=== PATIENT | male | born 1985 | race Caucasian/White ===

== ENCOUNTER → 2021-07-07 14:48 | Outpatient (BNVA) | payer OTHER, SELFPAY | PROVIDERS: Family Provider Family Medicine; PCP Family Medicine; Visit Provider Nurse Practitioner Family | DX: R05.9 Cough, unspecified (principal); Z20.822 Contact with and (suspected) exposure to COVID-19 | CPT/HCPCS: 87635 ==

== ENCOUNTER → 2022-08-21 16:57 | Outpatient (BNVA) | payer MEDICAID, SELFPAY | PROVIDERS: Family Provider Family Medicine; PCP Family Medicine; Visit Provider Nurse Practitioner Family | DX: R10.11 Right upper quadrant pain (principal); I10 Essential (primary) hypertension; N63.0 Unspecified lump in unspecified breast; R19.7 Diarrhea, unspecified | CPT/HCPCS: 80053; 80061; 82150; 83690; 84443; 85025; 86140 ==

== ENCOUNTER 2022-09-12 08:07 | Outpatient (CLI) | payer MEDICAID, SELFPAY ==
--- NOTE | 2022-09-12 | US_ITS ---
WS: [id number] RIGHT UPPER QUADRANT ULTRASOUND HISTORY: RUQ PAIN COMPARISON: None available. Liver: 17.8 cm in length. Mildly enlarged liver. Very mild coarse echotexture. There are several hypo echoic areas within the liver which need further evaluation. In the central RIGHT lobe near the cauda te is a hypoechoic mass measuring 2.1 x 2.7 x 2.1 cm. There is an additional hypoechoic area near the LEFT lobe which may be artifactual, very ill-defined. Nevertheless additional evaluation of the live r will be necessary. Portal Vein: Normal hepatopetal flow with monophasic waveform. Gallbladder: Normally distended gallbladder with no stones or wall thickening. CBD: Not visualized. Pancreas: Not visualized. Right kidney: 11.5 cm in length. Normal size and echogenicity. No hydronephrosis or mass. Aorta and IVC: Unremarkable abdominal aorta and IVC. No ascites. US/US abdomen limited [id number] IMPRESSION: 1. Mild hepatomegaly with hepatic steatosis. 2. There are additional hypoechoic areas within the liver which are masslike a nd need further imaging evaluation. Differential includes hepatic neoplasm but also areas of focal fatty sparing. Recommend follow-up CT abdomen and pelvis wi th IV and oral contrast. 3. Limited visualization and evaluation of the common bile duct and pancreas. This will be further evaluated on the follow-up CT.
--- NOTE | 2022-09-12 08:16 | MM_ITS ---
WS: [id number] DIAGNOSTIC BILATERAL DIGITAL BREAST TOMOSYNTHESIS MAMMOGRAPHY WITH CAD Bilateral breast ultrasound, limited. HISTORY: N63.0 - Unspecified lump in unspecified breast, male patient. COMPARISON: None available. TECHNIQUE: Bilateral craniocaudad, mediolateral oblique, and mediolateral views are submitted with to mosjacky and CATHY. Spot compression bilateral CC views. Computer aided detection utilized. Breast composition: The breasts are almost entirely fatty. Markers are placed over each breast with t he patient describes palpable areas. No underlying masses are identified. No skin thickening. Bilateral breast ultrasound, limited. Bilateral breast ultrasound is performed. Patient directed imaging to the areas of concern and palpab le abnormalities. No masses or distortion or shadowing is identified within either breast. MM/[place] [id number] IMPRESSION: BI-RADS: 1-Negative FOLLOW UP: See Report No additional imaging necessary.
== END 2022-09-12 08:08 | disposition home or self-care (01) ==
PROVIDERS: PCP Nurse Practitioner Family; Visit Provider Nurse Practitioner Family
DX: N63.0 Unspecified lump in unspecified breast (principal); R10.11 Right upper quadrant pain; K76.0 Fatty (change of) liver, not elsewhere classified
CPT/HCPCS: 76642; 76705; 77062; G0279

== ENCOUNTER 2022-09-29 12:15 | Outpatient (CLI) | payer MEDICAID, SELFPAY ==
[2022-09-29] MEDS: iohexol 350 mg/mL 500 mL Btl (per mL) IV (12:29)
--- NOTE | 2022-09-29 13:00 | CT_ITS ---
WS: [id number] EXAMINATION: CT abdomen pelvis w con* [id number] ORDER DATE: 09/29/2022 12:28 PM HISTORY: R93.2 - Abnormal findings on diagnostic imaging of liver ... TOTAL EXAM DLP: 838.[address] scans at [facility] use at least one of these dose optimization techniques: automated e xposure control; mA and/or kV adjustment per patient size (includes targeted exams where dose is matc hed to clinical indication); or iterative reconstruction. TECHNIQUE: Transaxial imaging through the abdomen and pelvis was performed with 2-D reformats followi ng the intravenous administration of Omnipaque 350 100 ml IV FINDINGS: There are no acute changes in the visualized lung bases. There is no sign of pneumoperitoneum. The liver was unremarkable. The gallbladder, spleen and pancreas were unremarkable. There is a normal appearance of both adrenal glands and both kidneys. The small bowel pattern is not significantly dilated and there are no significant air-fluid levels. There is a normal-appearing appendix. There is moderate fecal loading of the colon. There is no ascites or increased cul-de-sac fluid. The urinary bladder as imaged is unremarkable. CT/CT abdomen pelvis w con* [id number] IMPRESSION: No acute abdominal findings
[2022-09-29] MEDS: iohexol 350 mg/mL 500 mL Btl (per mL) PO (13:02)
== END 2022-09-29 12:16 | disposition home or self-care (01) ==
PROVIDERS: PCP Nurse Practitioner Family; Visit Provider Nurse Practitioner Family
DX: R93.2 Abnormal findings on diagnostic imaging of liver and biliary tract (principal)
CPT/HCPCS: 74177; Q9967

== ENCOUNTER → 2023-10-19 10:30 | Outpatient (BNVA) | payer MEDICAID, SELFPAY | PROVIDERS: PCP Nurse Practitioner Family; Visit Provider Nurse Practitioner Family | DX: I10 Essential (primary) hypertension (principal) | CPT/HCPCS: 80053; 80061 ==